=== PATIENT | female | born 1995 | race Caucasian/White ===

== ENCOUNTER 2023-04-22 05:55 | Inpatient (IN) | payer BC, SELFPAY ==
[2023-04-22] VITALS (62 sets, daily range): BP systolic 90–235; BP diastolic 50–149; PULSE 62–164; RESP 16–18; TEMP 36.4–37.4
[2023-04-22 06:50] LABS: Hematocrit 34.6 % (36.0-48.0); Hemoglobin 11.8 g/dL (12.0-16.0); Mean Corpuscular HGB Conc 34.1 g/dL (29.9-35.2); Mean Corpuscular Hemoglobin 31.5 pg (26.7-34.0); Mean Corpuscular Volume 92.3 fL (81.0-99.0); Mean Platelet Volume 12.2 fL (9.5-13.5); Platelet Count 163 10^3/uL (150-450); Red Blood Count 3.75 10^6/uL (4.20-5.40); Red Cell Distribution Width 13.4 % (11.0-15.0)
[2023-04-22 07:16] LABS: Amphetamine Screen Urine NEGATIVE (NEGATIVE); Barbiturates Screen Urine NEGATIVE (NEGATIVE); Benzodiazepines Screen Urine NEGATIVE (NEGATIVE); Buprenorphine Screen Urine NEGATIVE (NEGATIVE); Cannabinoid Screen Urine NEGATIVE (NEGATIVE); Cocaine Screen Urine NEGATIVE (NEGATIVE); Methadone Screen Urine NEGATIVE (NEGATIVE); Methamphetamines Screen Urine NEGATIVE (NEGATIVE); Opiate Screen Urine NEGATIVE (NEGATIVE); Oxycodone Screen Urine NEGATIVE (NEGATIVE); Phencyclidine Screen Urine NEGATIVE (NEGATIVE); Tricyclic Antidepressant Urine NEGATIVE (NEGATIVE)
--- NOTE | 2023-04-22 07:21 | W.PC.ACHO ---
Registration Status: ADM IN Primary Language: Belizean Preferred Language: Belizean Report given Cheryl NESBITT at 0705. Active Medications Generic Name Dose Route Start Last Admin Trade Name [place] PRN Reason Stop Dose Admin Acetaminophen 1,000 mg 04/22/23 06:04 Acetaminophen 500 Mg Tablet PO Q6H PRN Headache Carboprost Tromethamine 250 mcg 04/22/23 06:04 Carboprost Tromethamine 250 Mcg/Ml 1 Ml Vial IM 04/24/23 06:04 Q15M PRN Bleeding Sodium Chloride 1,000 mls @ 125 mls/hr 04/22/23 06:15 Sodium Chloride 0.9% 1,000 Ml IV .Q8H RANDELL Oxytocin/Sodium Chloride 10 units in 500 mls @ 6 mls/hr 04/22/23 06:15 Pitocin 10 Unit/500 Ml-Ns IV CONT RANDELL Protocol 2 MILLIUNIT/MIN Oxytocin/Sodium Chloride 20 units in 1,000 mls @ 125 mls/hr 04/22/23 06:15 Pitocin 20 Unit/1,000 Ml-Ns IV 04/22/23 14:14 Q8H RANDELL Lidocaine 5 ml 04/22/23 06:04 Lidocaine Viscous 2% 15 Ml Solution TOPICAL ONCE PRN Pain Lidocaine 1 ml 04/22/23 06:04 Lidocaine Hcl 1% 200 Mg/20 Ml Mdv INJ ONCE PRN Pain Methylergonovine Maleate 0.2 mg 04/22/23 06:04 Methylergonovine Maleate 0.2 Mg/Ml Ampule IM 04/24/23 06:04 ONCE PRN Uterine Contractility/Contract Methylergonovine Maleate 0.2 mg 04/22/23 06:04 Methylergonovine Maleate 0.2 Mg Tablet PO 04/24/23 06:04 Q4H PRN Uterine Contractility/Contract Misoprostol 600 mcg 04/22/23 06:04 Misoprostol 100 Mcg Tablet PO 04/24/23 06:04 ONCE PRN Uterine Bleeding Misoprostol 800 mcg 04/22/23 06:04 Misoprostol 100 Mcg Tablet SL 04/24/23 06:04 ONCE PRN Uterine Bleeding Misoprostol 1,000 mcg 04/22/23 06:04 Misoprostol 100 Mcg Tablet [place] 04/24/23 06:04 ONCE PRN Uterine Bleeding Ondansetron HCl 4 mg 04/22/23 06:04 Ondansetron Pf 4 Mg/2 Ml Vial IV Q6H PRN Nausea And Vomiting Ondansetron HCl 4 mg 04/22/23 06:04 Ondansetron 4 Mg Rapdis Tablet SL Q6H PRN Nausea And Vomiting Oxytocin 10 unit 04/22/23 06:04 Oxytocin 10 Unit/Ml Vial IM 04/24/23 06:04 ONCE PRN Bleeding Diet Category Date Time Status Clear Liquid Diet Diet 04/22/23 06:05 Active Consults Category Date Time Status Consult to Anesthesiology Routine Cons 04/22/23 Ordered IV Insertion/Site Date of IV Line Insertion [20g 04/22/23 right Forearm] IV Insertion Time [20g right 06:30 Forearm] Neurology Patient orientation (short person,place,time,situation list) Respiratory Oxygen Delivery Method Room Air
--- NOTE | 2023-04-22 08:10 | P.OBHP_ITS ---
OB - H&P: HPI History of Present Illness Chief complaint: INDUCTION : 1 Para: 0 Gestational age based on last menstrual period: 40.0 Indications for induction: other (Elective ) History of Present Dating criteria: LMP confirmed by 1st trimester US care: good care Ultrasounds: normal 1st trimester US and normal mid trimester US Medical complications OB: none Labs Blood type: A (-) negative Rubella: immune RPR/VDLR: nonreactive GBS status: negative HBsAG: negative PFSH PFSH Surgical History (Updated 04/22/23 @ 06:48 by Nancy Yen) History of appendectomy ?Z90.49 - Acquired absence of other specified parts of digestive tract (ICD- 10) Family History (Updated 04/22/23 @ 06:51 by Nancy Yen) Grandfather Family history not known due to adoption Family history of cancer Grandmother Family history of CHF (congestive heart failure) Family history of cancer Family history of stroke Uncle Family history of CHF (congestive heart failure) Father Family history of hypertension Social History (Updated 04/22/23 @ 06:52 by Nancy Yen) Within the past year, how often did you have a drink containing alcohol: never Score interpretation: A score less than 3 is consistent with normal alcohol consumption. Smoking status: Never smoker Non-prescribed substance use: denies use Highest level of school completed/degree received: Bachelor's degree Are you now , , , , never or living with a partner: Little interest or pleasure in doing things: not at all Feeling down, depressed, or hopeless: not at all Feel stressed/tense/nervous/anxious/difficulty sleeping: not at all Do you think of yourself as: straight/heterosexual Gender Identity: female Meds Home Medications and Allergies Home Medications Medication Instructions Recorded Confirmed Type No Known Home Medications 04/22/23 04/22/23 History Allergies Allergy/AdvReac Type Severity Reaction Status Date / Time cephalexin Allergy Intermediate rash Verified 04/22/23 08:09 Exam Constitutional Vital Signs, click to edit/add: Last Vital Signs Temp 97.5 F L 04/22/23 06:36 Pulse 100 H 04/22/23 06:37 Resp 16 04/22/23 06:12 BP 119/74 04/22/23 06:37 O2 Del Method Room Air 10/11/23 06:12 Common normals: no apparent distress and oriented x3 General appearance: cooperative and comfortable Orientation/consciousness: Yes awake, Yes oriented to person, Yes oriented to place and Yes oriented to time HENMT Common normals: normocephalic Eye Common normals: EOMs intact bilaterally Neck & C-Spine Common normals: full ROM and no lymphadenopathy Lymph Lymphatic: no lymphadenopathy noted Chest Common normals: inspection of chest normal Respiratory Common normals: normal respiratory effort and clear to auscultation bilaterally Auscultation: clear to auscultation bilaterally Cardio Common normals: regular rate and regular rhythm Rate: regular rate Rhythm: regular rhythm GI Common normals: Normal to inspection, nondistended, normoactive bowel sounds present Inspection: normal to inspection Auscultation: normoactive bowel sounds Common normals: no CVA tenderness Back & Pelvis Common normals: no CVA tenderness Extremity Common normals: normal to inspection and full ROM Neuro Common normals: oriented x3 Sensorium/orientation: awake, alert, oriented to person, oriented to place and oriented to time Speech: speech normal Psych Common normals: mental status grossly normal, thought process normal and cooperative Results Labs Labs: Short CBC 04/22/23 Range/Units 06:30 WBC 10.0 (4.0-11.0) 10^3/uL Hgb 11.8 L (12.0-16.0) g/dL Hct 34.6 L (36.0-48.0) % Plt Count 163 (150-450) 10^3/uL OB - A/P Assessment and Plan (1) Term : Plan admit for elective induction of labor. routine labor orders, patient may receive epidural when she desires.
[2023-04-22] MEDS: 0.9 % SODIUM CHLORIDE 1,000 ML 125 ML IV (09:36)
[2023-04-22] MEDS: FENTANYL CITRATE/PF 100 MCG/2 ML VIAL EPIDURAL ×2 (09:37→09:38)
[2023-04-22] MEDS: ROPIVACAINE HCL/PF 400 MG/200 ML PREMIX 6 MG EPIDURAL (09:37)
--- NOTE | 2023-04-22 10:12 | PM.EN ---
Event Note Event Note: 0948 deceleration noted. CNM called to room during deceleration. i arrived after 3 mins of deceleration from call room. RN performing SVE exam at this time. States she is 4. Verbal order to call Dr Moncada to come to unit. Patient repositioned to hands and knees and heart tones improving. CNM to change clothes while RN going to place catheter. I returned to room and Dr Moncada present, SVE performed, AROM and internals placed. Heart tones improving. 1005 Heart tones improved catergory 1 tracing noted, maternal O2 discontinued at this time.
[2023-04-22] MEDS: OXYTOCIN/0.9 % SODIUM CHLORIDE 10 UNITS/500 ML PLAST..BAG 6 UNIT IV (12:10)
[2023-04-22] MEDS: OXYTOCIN/0.9 % SODIUM CHLORIDE 20 UNITS/1,000 ML PLAST..BAG 125 UNIT IV (18:42)
[2023-04-22] MEDS: KETOROLAC TROMETHAMINE 30 MG/ML VIAL IVP (19:05)
--- NOTE | 2023-04-22 19:24 | PM.OBPRCVD ---
Procedure Procedure: , with 2nd degree perineal repair and bilateral labial repair. Right periurethral repair events: Labor Induction and Labor Augmentation Intrapartal events: Deceleration Induction method: artificial rupture of membranes Delivery augmentation: pitocin Delivery monitor: external uterine and internal FHT Route of delivery: Episiotomy Description: none Laceration description: perineal - 2nd degree (bilateral labial repair ) Delivery repair: Vicryl Estimated blood loss (mL): 300 Anesthesia type: Epidural Disposition: no change Delivery date: 04/22/23 Gender: male presentation: vertex Placental delivery description: Spontaneous cord description: 3 Vessels heart rate - 1 minute: 100 bpm or Greater respiratory effort - 1 minute: Spontaneous/Strong Cry muscle tone - 1 minute: Active Movement reflex response - 1 minute: Minimal Response color - 1 minute: Bluish Hands or Feet total score - 1 minute: 8 heart rate - 5 minute: 100 bpm or Greater respiratory effort - 5 minute: Spontaneous/Strong Cry muscle tone - 5 minute: Active Movement reflex response - 5 minute: Prompt Response color - 5 minute: Bluish Hands or Feet total score - 5 minute: 9
[2023-04-22] MEDS: LIDOCAINE HCL 1% 200 MG/20 ML MDV INJ (19:39)
--- NOTE | 2023-04-22 20:06 | PC.NURSE ---
1899 repair completed, pericare given, ice pack to perineum, epidural removed intact, urine now draining clear yellow, medicated with toradol for pain level of 7
[2023-04-22] MEDS: OXYCODONE HCL/ACETAMINOPHEN 5MG/325MG 1 TAB PO (21:41)
[2023-04-22] MEDS: BENZOCAINE/MENTHOL 85 GRAM SPRAY BOTTLE 1 APPLIC TOPICAL (21:47)
[2023-04-22] MEDS: GLYCERIN/WITCH HAZEL PADS 1 PAD TOPICAL (21:47)
--- NOTE | 2023-04-22 22:01 | PC.NURSE ---
RN and of pt attempt to reposition pt to place donut under bottom and get pt ready to breastfeed again. Pt unable to reposition d/t pain. RN medicates pt with PRN Percocet as ordered and will come back within 1hr to reassess, reposition, perform huy care, and place donut.
--- NOTE | 2023-04-22 23:06 | PC.NURSE ---
RN and pt's assist pt to reposition. Donut pillow is placed, huy care performed, Tucks and Dermaplast applied to perineum. Pt then in position to breastfeed. Tolerates well.
[2023-04-23] VITALS (7 sets, daily range): BP systolic 118–132; BP diastolic 71–78; PULSE 75–90; RESP 14–18; TEMP 36.6–36.8
[2023-04-23] MEDS: IBUPROFEN 400 MG TABLET 800 MG PO ×3 (01:07→17:10)
[2023-04-23] MEDS: OXYCODONE HCL/ACETAMINOPHEN 5MG/325MG 1 TAB PO ×3 (03:28→19:35)
[2023-04-23 07:17] LABS: Basophils Percent Auto 0.2 % (0.2-2.0); Eosinophils Percent Auto 0.2 % (0.9-7.0); Hematocrit 30.4 % (36.0-48.0); Immature Granulocytes Abs Auto 0.07 10^3/uL (0.00-0.03); Immature Granulocytes Pct Auto 0.5 % (0.0-0.5); Lymphocytes Absolute Auto 1.6 10^3/uL (1.2-3.8); Lymphocytes Percent Auto 11.7 % (20.5-60.0); Mean Corpuscular HGB Conc 32.9 g/dL (29.9-35.2); Mean Corpuscular Hemoglobin 31.1 pg (26.7-34.0); Mean Corpuscular Volume 94.4 fL (81.0-99.0); Monocytes Absolute Auto 0.8 10^3/uL (0.3-0.8); Monocytes Percent Auto 5.9 % (1.7-12.0); Neutrophils Absolute Auto 10.8 10^3/uL (1.4-6.5); Neutrophils Percent Auto 81.5 % (43.0-75.0); Platelet Count 141 10^3/uL (150-450); Red Blood Count 3.22 10^6/uL (4.20-5.40); Red Cell Distribution Width 13.6 % (11.0-15.0); White Blood Count 13.3 10^3/uL (4.0-11.0)
[2023-04-23] MEDS: DOCUSATE SODIUM 100 MG CAPSULE PO ×2 (08:48→20:38)
--- NOTE | 2023-04-23 12:52 | PM.OBPN ---
OB - PN: Subj Subjective Patient comments: no complaints [place] status: doing well Exam Constitutional Vital Signs, click to edit/add: Last Vital Signs Temp 98 F 04/23/23 00:00 Pulse 90 04/23/23 08:54 Resp 16 04/23/23 00:00 BP 119/77 04/23/23 08:54 O2 Del Method Room Air 04/23/23 00:00 Documenting provider has reviewed patient's vital signs: yes Common normals: no apparent distress Respiratory Common normals: normal respiratory effort and clear to auscultation bilaterally Cardio Common normals: regular rate and regular rhythm GI Common normals: Normal to inspection, nondistended, normoactive bowel sounds present Extremity Common normals: no clubbing, cyanosis or edema Results Labs Labs: Short CBC 04/23/23 Range/Units 06:49 WBC 13.3 H (4.0-11.0) 10^3/uL Hgb 10.0 L (12.0-16.0) g/dL Hct 30.4 L (36.0-48.0) % Plt Count 141 L (150-450) 10^3/uL OB - PN: A/P Assessment and Plan (1) Term : Plan - Vaginal Delivery day: 1 Plan: routine care Time Spent with Patient Time: Total time spent is greater than 50% in coordination of care (as documented) at patient's floor/unit and/or counseling patient: Total time spent with greater than 50% in coordination of care (as documented) at patient's floor/unit and/or counseling patient: less than 15 minutes
--- NOTE | 2023-04-23 14:57 | PC.NURSE ---
barboza catheter removed with 1000 cc in bag at 1330
--- NOTE | 2023-04-23 20:05 | W.PC.ACHO ---
Registration Status: ADM IN Primary Language: Bahamian Preferred Language: Bahamian Active Medications Generic Name Dose Route Start Last Admin Trade Name Freq PRN Reason Stop Dose Admin Acetaminophen 650 mg 04/22/23 19:36 Acetaminophen 325 Mg Tablet PO Q6H PRN Mild Pain Al Hydroxide/Mg Hydroxide 2,400 mg 04/22/23 19:37 Magnesium Hydroxide 2,400 Mg/10 Ml Oral.Susp PO Q6H PRN Dyspepsia Benzocaine/Menthol 1 applic 04/22/23 19:37 04/22/23 21:47 Benzocaine/Menthol 85 Gram [place] Bottle TOPICAL 1 applic Q2H PRN Administration Pain Docusate Sodium 100 mg 04/23/23 09:00 04/23/23 08:48 Docusate Sodium 100 Mg Capsule PO 100 mg BID RANDELL Administration Sodium Chloride 1,000 mls @ 125 mls/hr 04/22/23 06:15 04/22/23 09:36 Sodium Chloride 0.9% 1,000 Ml IV 125 mls/hr .Q8H RANDELL Administration Ibuprofen 800 mg 04/23/23 00:32 04/23/23 17:10 Ibuprofen 400 Mg Tablet PO 800 mg Q8H PRN Administration Pain Measles/Mumps/Rubella Vaccine Live 0.5 ml 04/24/23 09:00 Measles,Mumps,Rubella Vacc/Pf 0.5 Ml Vial SQ 04/24/23 09:01 .ONCE ONE Ondansetron HCl 4 mg 04/22/23 06:04 Ondansetron Pf 4 Mg/2 Ml Vial IV Q6H PRN Nausea And Vomiting Ondansetron HCl 4 mg 04/22/23 06:04 Ondansetron 4 Mg Rapdis Tablet SL Q6H PRN Nausea And Vomiting Senna 17.2 mg 04/22/23 20:00 Sennosides 8.6 Mg Tablet PO QHS PRN Constipation Simethicone 80 mg 04/22/23 19:37 Simethicone 80 Mg Tab.Chew PO QID PRN Abdominal Distention Temazepam 15 mg 04/22/23 19:37 Temazepam 15 Mg Capsule PO QHS PRN Sleep Witch Leela/Glycerin 1 pad 04/22/23 19:37 04/22/23 21:47 Glycerin/Witch Leela Pads TOPICAL 1 pad Q2H PRN Administration Pain Diet Category Date Time Status Regular Consistency Diet Diet 04/22/23 19:36 Active Respiratory Oxygen Delivery Method Room Air Oxygen Delivery Method Room Air Cardiology Heart Sounds Strong,Regular
[2023-04-23 20:55] LABS: Basophils Percent Auto 0.3 % (0.2-2.0); Eosinophils Percent Auto 0.3 % (0.9-7.0); Hematocrit 30.1 % (36.0-48.0); Immature Granulocytes Abs Auto 0.04 10^3/uL (0.00-0.03); Immature Granulocytes Pct Auto 0.3 % (0.0-0.5); Lymphocytes Absolute Auto 1.7 10^3/uL (1.2-3.8); Lymphocytes Percent Auto 14.8 % (20.5-60.0); Mean Corpuscular HGB Conc 33.2 g/dL (29.9-35.2); Mean Corpuscular Hemoglobin 31.3 pg (26.7-34.0); Mean Corpuscular Volume 94.4 fL (81.0-99.0); Mean Platelet Volume 11.5 fL (9.5-13.5); Monocytes Absolute Auto 0.6 10^3/uL (0.3-0.8); Monocytes Percent Auto 5.2 % (1.7-12.0); Neutrophils Absolute Auto 9.2 10^3/uL (1.4-6.5); Neutrophils Percent Auto 79.1 % (43.0-75.0); Platelet Count 146 10^3/uL (150-450); Red Blood Count 3.19 10^6/uL (4.20-5.40); Red Cell Distribution Width 13.7 % (11.0-15.0); White Blood Count 11.6 10^3/uL (4.0-11.0)
[2023-04-24 01:20] VITALS: RESP 18; TEMP 36.5
[2023-04-24] MEDS: IBUPROFEN 400 MG TABLET 800 MG PO ×3 (01:20→16:13)
[2023-04-24 01:25] VITALS: BP 104/65; PULSE 82
--- NOTE | 2023-04-24 02:16 | PC.NURSE ---
RN enters room to patient lying in bed with at bedside trying to console her. Pt is tearful, pale, and guarding abdomen; states she is feeling 8/10 pain in suprapubic area and pressure in her perineal area. RN takes pt's vital signs which are WNL. Small lochia noted on pad & fundus is firm but deviated 1 finger above umbilicus and to the left. Pt had barboza catheter removed 6 hours ago and has not been able to void yet. RN provides emotional support to pt and leaves room to call physician.
--- NOTE | 2023-04-24 02:46 | PC.NURSE ---
RN straight catheterizes pt for 800ml of clear yellow urine. Pt feels relief of suprapubic/perineal pressure and pain is improving as well.
--- NOTE | 2023-04-24 07:21 | W.PC.ACHO ---
Registration Status: ADM IN Primary Language: French Preferred Language: French Active Medications Generic Name Dose Route Start Last Admin Trade Name Freq PRN Reason Stop Dose Admin Acetaminophen 650 mg 04/22/23 19:36 Acetaminophen 325 Mg Tablet PO Q6H PRN Mild Pain Al Hydroxide/Mg Hydroxide 2,400 mg 04/22/23 19:37 Magnesium Hydroxide 2,400 Mg/10 Ml Oral.Susp PO Q6H PRN Dyspepsia Benzocaine/Menthol 1 applic 04/22/23 19:37 04/22/23 21:47 Benzocaine/Menthol 85 Gram [place] Bottle TOPICAL 1 applic Q2H PRN Administration Pain Docusate Sodium 100 mg 04/23/23 09:00 04/23/23 20:38 Docusate Sodium 100 Mg Capsule PO 100 mg BID RANDELL Administration Sodium Chloride 1,000 mls @ 125 mls/hr 04/22/23 06:15 04/22/23 09:36 Sodium Chloride 0.9% 1,000 Ml IV 125 mls/hr .Q8H RANDELL Administration Ibuprofen 800 mg 04/23/23 00:32 04/24/23 01:20 Ibuprofen 400 Mg Tablet PO 800 mg Q8H PRN Administration Pain Measles/Mumps/Rubella Vaccine Live 0.5 ml 04/24/23 09:00 Measles,Mumps,Rubella Vacc/Pf 0.5 Ml Vial SQ 04/24/23 09:01 .ONCE ONE Ondansetron HCl 4 mg 04/22/23 06:04 Ondansetron Pf 4 Mg/2 Ml Vial IV Q6H PRN Nausea And Vomiting Ondansetron HCl 4 mg 04/22/23 06:04 Ondansetron 4 Mg Rapdis Tablet SL Q6H PRN Nausea And Vomiting Oxycodone/Acetaminophen 1 tab 04/23/23 20:34 Oxycodone Hcl/Acetaminophen 5mg/325mg PO Q6H PRN Pain Senna 17.2 mg 04/22/23 20:00 Sennosides 8.6 Mg Tablet PO QHS PRN Constipation Simethicone 80 mg 04/22/23 19:37 Simethicone 80 Mg Tab.Chew PO QID PRN Abdominal Distention Temazepam 15 mg 04/22/23 19:37 Temazepam 15 Mg Capsule PO QHS PRN Sleep Witch Leela/Glycerin 1 pad 04/22/23 19:37 04/22/23 21:47 Glycerin/Witch Leela Pads TOPICAL 1 pad Q2H PRN Administration Pain Respiratory Oxygen Delivery Method Room Air Cardiology Heart Sounds Strong,Regular Renal Bladder Pattern Continent Bladder Pattern Retention
[2023-04-24] MEDS: DOCUSATE SODIUM 100 MG CAPSULE PO (09:03)
[2023-04-24] MEDS: RHO(D) IMMUNE GLOBULIN 1,500 UNIT SYRINGE 1500 UNIT IV (09:04)
--- NOTE | 2023-04-24 09:21 | P.OBPN_ITS ---
OB - PN: Subj Subjective Patient comments: no complaints and pain well controlled [place] status: doing well Exam Constitutional Vital Signs, click to edit/add: Last Vital Signs Temp 97.7 F 04/24/23 01:20 Pulse 82 04/24/23 01:25 Resp 18 04/24/23 01:20 BP 104/65 04/24/23 01:25 O2 Del Method Room Air 04/24/23 01:20 Documenting provider has reviewed patient's vital signs: yes Common normals: no apparent distress Respiratory Common normals: normal respiratory effort and clear to auscultation bilaterally Cardio Common normals: regular rate and regular rhythm GI Common normals: Normal to inspection, nondistended, normoactive bowel sounds present Extremity Common normals: no calf tenderness Results Labs Labs: Short CBC 04/23/23 Range/Units 20:42 WBC 11.6 H (4.0-11.0) 10^3/uL Hgb 10.0 L (12.0-16.0) g/dL Hct 30.1 L (36.0-48.0) % Plt Count 146 L (150-450) 10^3/uL OB - PN: A/P Assessment and Plan (1) Term : Plan - Vaginal Delivery day: 2 Plan: routine care, discharge home and follow up 6 weeks Time Spent with Patient Time: Total time spent is greater than 50% in coordination of care (as documented) at patient's floor/unit and/or counseling patient: Total time spent with greater than 50% in coordination of care (as documented) at patient's floor/unit and/or counseling patient: less than 15 minutes
[2023-04-24 09:30] VITALS: RESP 18; TEMP 37.1; O2SAT 97
--- NOTE | 2023-04-24 09:58 | US_ITS ---
[address] [address] Patient Name: RANDELL GUZMAN MRN: [id number] date: 1995 Sex: F Assigned Patient Location: [facility] Current Patient Location: [facility] Accession/Order Number: [id number] Exam Date: 04/24/2023 10:20 Report Date: 04/24/2023 11:24 At the request of: ANTONIA CANNON Procedure: US pelvis EXAMINATION: US pelvis HISTORY: r/o retained placenta COMPARISON: No relevant comparison available. TECHNIQUE: Transabdominal and/or transvaginal sonographic examination was performed as indicated by examination type. FINDINGS: UTERUS: Normal size and appearance for being 2 days . ENDOMETRIUM: Thickened endometrium consistent with state. No appreciable retained products or fluid collection. RIGHT OVARY: Not seen. No suspicious adnexal findings. LEFT OVARY: Not seen. No suspicious adnexal findings. CUL-DE-SAC: Unremarkable. No significant free fluid. BLADDER: Unremarkable. OTHER: None. US/US pelvis IMPRESSION: 1. Expected appearance of the uterus and endometrium. No retained products of conception. 2. Neither ovary could be identified: no suspicious adnexal findings. Electronically authenticated by: FRANSISCO JAIME Date: 04/24/2023 11:24
[2023-04-24 10:46] VITALS: BP 111/60; PULSE 86
--- NOTE | 2023-04-24 11:14 | PC.NURSE ---
0479 Patient complaints of shaking uncontrollably and complaints of occasional light headedness. Instructed to call out for assistance if needed. call light in reach .
[2023-04-24 11:26] LABS: Basophils Percent Auto 0.2 % (0.2-2.0); Eosinophils Absolute Auto 0.1 10^3/uL (0.0-0.7); Eosinophils Percent Auto 0.5 % (0.9-7.0); Hematocrit 29.3 % (36.0-48.0); Hemoglobin 9.7 g/dL (12.0-16.0); Immature Granulocytes Abs Auto 0.04 10^3/uL (0.00-0.03); Immature Granulocytes Pct Auto 0.4 % (0.0-0.5); Lymphocytes Absolute Auto 1.3 10^3/uL (1.2-3.8); Lymphocytes Percent Auto 14.1 % (20.5-60.0); Mean Corpuscular HGB Conc 33.1 g/dL (29.9-35.2); Mean Corpuscular Hemoglobin 31.3 pg (26.7-34.0); Mean Corpuscular Volume 94.5 fL (81.0-99.0); Mean Platelet Volume 11.4 fL (9.5-13.5); Monocytes Absolute Auto 0.4 10^3/uL (0.3-0.8); Monocytes Percent Auto 4.3 % (1.7-12.0); Neutrophils Absolute Auto 7.6 10^3/uL (1.4-6.5); Neutrophils Percent Auto 80.5 % (43.0-75.0); Platelet Count 160 10^3/uL (150-450); Red Cell Distribution Width 13.8 % (11.0-15.0); White Blood Count 9.4 10^3/uL (4.0-11.0)
[2023-04-24] MEDS: CLINDAMYCIN PHOSPHATE/D5W 900 MG/50 ML PIGGYBACK 100 MG IV (12:45)
[2023-04-24] MEDS: AMPICILLIN SODIUM 2,000 MG in 0.9 % SODIUM CHLORIDE 100 ML 200 MG IV (13:24)
[2023-04-24] MEDS: AMPICILLIN SODIUM 1,000 MG in 0.9 % SODIUM CHLORIDE 50 ML 100 MG IV (17:37)
[2023-04-24 17:44] VITALS: BP 120/76; PULSE 82
== END 2023-04-24 18:41 | disposition home or self-care (01) | DRG 807 ==
PROVIDERS: Admitting Provider Obstetrics & Gynecology; Family Provider Family Medicine; PCP Family Medicine; Visit Provider Midwife
DX: O70.1 Second degree perineal laceration during delivery (principal); Z37.0 Single live birth; O76 Abnormality in fetal heart rate and rhythm complicating labor and delivery; O70.0 First degree perineal laceration during delivery; Z3A.40 40 weeks gestation of pregnancy; Z88.1 Allergy status to other antibiotic agents; Z23 Encounter for immunization
CPT/HCPCS: 36415; 59050; 59410; 76856; 80307; 85025; 85027; 85461; 86850; 86900; 86901; 96365; 96372; 96375; 96376; J2790

== ENCOUNTER 2023-04-27 08:05 | Outpatient (OUT) | payer BC, SELFPAY | END 2023-04-27 08:06 | disposition home or self-care (01) | LOC: FBCO 08:07 | PROVIDERS: Family Provider Family Medicine; PCP Family Medicine; Visit Provider Midwife | DX: Z39.2 Encounter for routine postpartum follow-up (principal) ==